=== PATIENT | female | born 1965 | race Two or more races ===

== ENCOUNTER 2018-03-04 13:25 | Day surgery (SDC) | payer OTHER ==
[~2018-03-04] VITALS: Ht 160 cm; Wt 102.9 kg
[2018-03-04] MEDS ORDERED: FISH OIL (15:05)
[2018-03-04] MEDS ORDERED: ASPIRIN (15:06)
[2018-03-04] MEDS ORDERED: SIMVASTATIN (15:06)
[2018-03-04 15:48] VITALS: BP 159/81; PULSE 66; RESP 20
--- NOTE | 2018-03-04 16:12 | PREAC ---
Date/Time of Note Date/Time of Note DATE: 03/04/18 TIME: 16:10 Anesthesia Eval and Record Evaluation Time Pre-Procedure Interview DATE: 03/04/18 TIME: 16:10 Age 52 Sex female NPO: 8 hrs Preoperative diagnosis Colon screening Planned procedure Colonoscopy Past Medical History Past Medical History: Includes Cardio: HTN, Dyslipidemia GI: Morbid obesity Surgery & Anesthesia Issues No known issue Meds Anticoagulation: No Beta Kirk within 24 hr: No Reason Beta Kirk not given: Pt. not on B-Kirk Reported Medications [Simvastatin] No Conflict Check 03/04/18 [Aspirin] No Conflict Check 03/04/18 [Fish Oil] No Conflict Check 03/04/18 Meds reviewed: Yes Allergies Coded Allergies: No Known Allergy (Unverified , 03/04/18) Allergies Reviewed: Yes Labs/Studies Labs Reviewed: Reviewed by anesthesiologist test: Negative Studies: ECG Pre-procedure Exam Last vitals Vital Signs Date Temp Pulse Resp B/P (MAP) Pulse Ox O2 O2 Flow FiO2 Time Delivery Rate 03/04/18 98.1 66 20 159/81 99 Room Air 15:48 (107) Airway: Adequate mouth opening, Adequate thyromental dist Mallampati: Mallampati III Teeth: Normal Lung: Normal Heart: Normal ASA Physical Status ASA physical status: 3 Emergency: None Planned Anesthetic General/MAC: MAC Planned Pain Management Parenteral pain med Pre-operative Attestations Prior to commencing anesthesia and surgery, the patient was re-evaluated, there was verification of: *The patient's identity *The results of appropriate recent lab work and preoperative vital signs *The above evaluation not changing prior to induction *Anesthetic plan, risk benefits, alternative and complications discussed with patient/family; questions answered; patient/family understands, accepts and wishes to proceed. MARLENI FRANKLIN MD Mar 04, 2018 16:12
[2018-03-04] MEDS ORDERED: LIDOCAINE 2% (SDV) 5 ML INJ ONE (16:13)
[2018-03-04] MEDS ORDERED: PROPOFOL 60 ML ONE (16:13)
[2018-03-04 16:40] VITALS: BP 120/66; PULSE 77; RESP 20
--- NOTE | 2018-03-04 16:40 | PAC ---
Date/Time of Note Date/Time of Note DATE: 03/04/18 TIME: 16:39 Post-Anesthesia Notes Post-Anesthesia Note Last documented vital signs Vital Signs Date Temp Pulse Resp B/P (MAP) Pulse Ox O2 O2 Flow FiO2 Time Delivery Rate 03/04/18 98.1 66 20 159/81 99 Room Air 15:48 (107) Activity: WNL Respiratory function: WNL Cardiovascular function: WNL Mental status: Baseline Pain reasonably controlled: Yes Hydration appropriate: Yes Nausea/Vomiting absent: Yes Comments BP:127/67, pulse:68, spo2:100%, T:98,8 MARLENI FRANKLIN MD Mar 04, 2018 16:40
[2018-03-04 16:50] VITALS: BP 141/69; PULSE 76; RESP 18
[2018-03-04] MEDS ORDERED: ONDANSETRON 4 MG INJ IV PRN (17:00)
[2018-03-04] MEDS ORDERED: FENTAnyl 50 MCG/ML VIAL IV PRN (17:00)
[2018-03-04 17:03] VITALS: BP 144/73; PULSE 70; RESP 20
== END 2018-03-04 18:22 | disposition home or self-care (01) ==
LOC: GIL 13:25
PROVIDERS: ATTEND Internal Medicine Gastroenterology
DX: Z12.11 Encounter for screening for malignant neoplasm of colon (principal); D12.3 Benign neoplasm of transverse colon; K64.8 Other hemorrhoids; E78.00 Pure hypercholesterolemia, unspecified
CPT/HCPCS: 45385; 84703; 88305; Z7610

== ENCOUNTER 2018-08-25 10:50 | Day surgery (SDC) | payer OTHER ==
[~2018-08-25] VITALS: Ht 160 cm; Wt 104.0 kg
[~2018-08-25 10:50] MED LIST: ASPIRIN; FISH OIL; SIMVASTATIN
[2018-08-25] MEDS ORDERED: OMEPRAZOLE (12:15)
[2018-08-25] MEDS ORDERED: PROCTOSOL (12:16)
[2018-08-25 12:37] VITALS: BP 175/83; PULSE 63; RESP 16
[2018-08-25] MEDS ORDERED: ETOMIDATE 20 MG INJ ONE (13:50)
[2018-08-25] MEDS ORDERED: LIDOCAINE 2% (SDV) 5 ML INJ ONE (13:50)
--- NOTE | 2018-08-25 13:59 | PREAC ---
Date/Time of Note Date/Time of Note DATE: 08/25/18 TIME: 13:58 Anesthesia Eval and Record Evaluation Time Pre-Procedure Interview DATE: 08/25/18 TIME: 13:58 Age 52 Sex female NPO: 8 hrs Preoperative diagnosis heartburn Planned procedure egd Past Medical History Past Medical History: Includes Cardio: HTN, Dyslipidemia GI: GERD, Morbid obesity Surgery & Anesthesia Issues No known issue Meds Anticoagulation: No Beta Kirk within 24 hr: No Reason Beta Kirk not given: Pt. not on B-Kirk Reported Medications [Proctosol] No Conflict Check 08/25/18 [Omeprazole] No Conflict Check 08/25/18 [Simvastatin] No Conflict Check 03/04/18 [Aspirin] No Conflict Check 03/04/18 [Fish Oil] No Conflict Check 03/04/18 Meds reviewed: Yes Allergies Coded Allergies: No Known Allergy (Unverified , 08/25/18) Allergies Reviewed: Yes Labs/Studies Labs Reviewed: Reviewed by anesthesiologist test: N/A Pre-procedure Exam Last vitals Vital Signs Date Temp Pulse Resp B/P (MAP) Pulse Ox O2 O2 Flow FiO2 Time Delivery Rate 08/25/18 97.1 63 16 175/83 98 Room Air 12:37 (113) Airway: Adequate mouth opening, Adequate thyromental dist Mallampati: Mallampati III Teeth: Normal Lung: Normal Heart: Normal ASA Physical Status ASA physical status: 3 Emergency: None Pre-operative Attestations Prior to commencing anesthesia and surgery, the patient was re-evaluated, there was verification of: *The patient's identity *The results of appropriate recent lab work and preoperative vital signs *The above evaluation not changing prior to induction *Anesthetic plan, risk benefits, alternative and complications discussed with patient/family; questions answered; patient/family understands, accepts and wishes to proceed. RAHEL NGO DO Aug 25, 2018 13:59
--- NOTE | 2018-08-25 13:59 | PAC ---
Date/Time of Note Date/Time of Note DATE: 08/25/18 TIME: 13:59 Post-Anesthesia Notes Post-Anesthesia Note Last documented vital signs Vital Signs Date Temp Pulse Resp B/P (MAP) Pulse Ox O2 O2 Flow FiO2 Time Delivery Rate 08/25/18 98 73 16 150/69 98 Room Air 1400 Activity: WNL Respiratory function: WNL Cardiovascular function: WNL Mental status: Baseline Pain reasonably controlled: Yes Hydration appropriate: Yes Nausea/Vomiting absent: Yes RAHEL NGO DO Aug 25, 2018 13:59
[2018-08-25 14:22] VITALS: BP 154/95; PULSE 54; RESP 18
== END 2018-08-25 17:45 | disposition home or self-care (01) ==
LOC: GIL 10:50
PROVIDERS: ATTEND Internal Medicine Gastroenterology
DX: K29.30 Chronic superficial gastritis without bleeding (principal); K20.8 Other esophagitis; I10 Essential (primary) hypertension; E78.5 Hyperlipidemia, unspecified; E66.01 Morbid (severe) obesity due to excess calories; Z68.41 Body mass index [BMI] 40.0-44.9, adult
CPT/HCPCS: 43239; 88305; 88312; Z7610